=== PATIENT | male | born 1970 | race Caucasian/White ===

== ENCOUNTER 2023-10-29 16:15 | Emergency (ER) | payer OTHER ==
[~2023-10-29] VITALS: Ht 175.3 cm; Wt 68.0 kg
[2023-10-29 16:23] VITALS: O2SAT 100
[2023-10-29] MEDS ORDERED: DOXY100T2 MT (17:19)
[2023-10-29] MEDS ORDERED: LIDOCAINE HCL/PF 1% 10 MG/ML 5ML VIAL INFIL ONE (17:30)
[2023-10-29] MEDS ORDERED: HIBIL TP (18:16)
[2023-10-29 19:10] VITALS: BP 120/77; PULSE 70; RESP 18; TEMP 98.2
== END 2023-10-29 19:11 | disposition home or self-care (01) ==
LOC: ER 16:15
DX: L02.412 Cutaneous abscess of left axilla (principal)
CPT/HCPCS: 10060; 99283; J3490; Z7610 ×2